=== PATIENT | female | born 1995 | race Two or more races ===

== ENCOUNTER 2017-02-10 15:27 | Emergency (ER) | payer MEDICAID, OTHER ==
[~2017-02-10] VITALS: Ht 154.9 cm; Wt 48.0 kg
[~2017-02-10 15:27] MED LIST: FERR28TA PO; GENT5DRO28 LEFT EYE; IBUP-1542 PO; PREN1TAB62 PO
[2017-02-10 15:30] VITALS: Ht 154.9 cm; Wt 48.0 kg
[2017-02-10] MEDS ORDERED: KETOROLAC 30 MG INJ IV STA (16:55)
[2017-02-10] MEDS ORDERED: ONDANSETRON 4 MG INJ IV STA (16:55)
--- NOTE | 2017-02-10 16:55 | ERD ---
ER Documentation Chief Complaint Date/Time DATE: 02/10/17 TIME: 16:49 Chief Complaint AP ONSET NOON HPI 21-year-old female presents emergency department for abdominal pain. Stated that her abdominal pain started in epigastric area then now it is painful on her right lower abdominal area. Has difficulty walking due to her abdominal pain. No associated with no vomiting. LMP: Stated that it was first week of last month. A0. Denies headache, dizziness, blurry vision, neck pain, throat pain, difficulty swallowing, loss of appetite, chest pain, back pain, diarrhea, constipation, trauma, injury, falls, urinary symptoms, , possibility of being , numbness or tingling sensation, recent travel, recent exposure to any illness, fever, chills. No known drug allergies. No past medical history. No surgical history. Does not take any prescription medication at home. Social: Works as a motor electrician. Denies smoking, use of alcoholic beverages, use of illegal drugs. ROS All systems reviewed and are negative except as per history of present illness. Medications Home Meds Active Scripts Acetaminophen* (Tylophen*) 500 Mg Capsule, 1 CAP PO Q6H Y for PAIN AND OR ELEVATED TEMP, #20 CAP Prov:KATIE SÁNCHEZ 02/10/17 Gentamicin Sulfate* (Gentamicin Sulfate* Ophth) 0.3% - 5 Ml Drops, 1 DROP LEFT EYE Q4 for 7 Days, #1 EA Prov:PAMELA KRAFT 02/26/16 Ibuprofen* (Ibuprofen*) 600 Mg Tab, 600 MG PO Q6, #20 TAB 0 Refills Prov:GABY PARIS MD 08/09/15 Reported Medications Vit-Iron Fumarate-FA ( Vitamin Tablet) 1 Each Tablet, 1 TAB PO DAILY, TAB 05/15/15 Ferrous Sulfate (Ferrous Sulfate) 1 Tab Tablet, 1 TAB PO BID 04/13/13 Allergies Allergies: Coded Allergies: No Known Allergies (Verified Allergy, Unknown, 02/10/17) PMhx/Soc History of Surgery: No Anesthesia Reaction: No Hx Neurological Disorder: No Hx Respiratory Disorders: No Hx Cardiac Disorders: No Hx Psychiatric Problems: No Hx Miscellaneous Medical Probl: No Hx Alcohol Use: No Hx Substance Use: No Hx Tobacco Use: No Physical Exam Vitals Vital Signs Date Time Temp Pulse Resp B/P Pulse Ox O2 Delivery O2 Flow Rate FiO2 02/10/17 15:30 98.1 99 18 117/59 99 Physical Exam Const: [] Head: Atraumatic Eyes: Normal Conjunctiva ENT: Normal External Ears, Nose and Mouth. Neck: Full range of motion..~ No meningismus. Resp: Clear to auscultation bilaterally Cardio: Regular rate and rhythm, no murmurs Abd: Soft, non distended. Hypoactive bowel sounds. Diffuse abdominal tenderness. Unable to jump due to abdominal pain. Has difficulty walking due to abdominal pain. No CVA tenderness. Skin: No petechiae or rashes Back: No midline or flank tenderness Ext: No cyanosis, or edema Neur: Awake and alert Psych: Normal Mood and Affect Results 24 hrs Current Medications Medications (Trade) Dose Ordered Sig/Marisel Route PRN Reason Start Time Stop Time Status Last Admin Dose Admin Ondansetron HCl (Zofran Inj) 4 mg ONCE STAT IV 02/10/17 16:55 02/10/17 16:58 DC Ketorolac Tromethamine 30 mg 30 mg ONCE STAT IV 02/10/17 16:55 02/10/17 16:58 DC Sodium Chloride (NS) 500 ml @ 500 mls/hr Q1H ONCE IV 02/10/17 17:00 02/10/17 17:59 DC Procedures/MDM 21-year-old female presents emergency department for abdominal pain. Stated that her abdominal pain started in epigastric area then now it is painful on her right lower abdominal area. Has difficulty walking due to her abdominal pain. No associated with no vomiting. LMP: Stated that it was first week of last month. A0. Denies headache, dizziness, blurry vision, neck pain, throat pain, difficulty swallowing, loss of appetite, chest pain, back pain, diarrhea, constipation, trauma, injury, falls, urinary symptoms, , possibility of being , numbness or tingling sensation, recent travel, recent exposure to any illness, fever, chills. No known drug allergies. No past medical history. No surgical history. Does not take any prescription medication at home. Social: Works as a motor electrician. Denies smoking, use of alcoholic beverages, use of illegal drugs. Physical exam: Hypoactive bowel sounds. Diffuse abdominal tenderness. Unable to jump due to abdominal pain. Has difficulty walking due to abdominal pain. No CVA tenderness. Disease process was explained to the patient and family member. They verbalized understanding and agreed to the diagnostic exam, treatment, plan of care. Treatment: IV insertion. Normal saline IV bolus 500 cc. Toradol IV. Zofran IV. Differential diagnosis: Appendicitis versus pancreatitis versus diverticulitis versus ileus versus nephrolithiasis versus pyelonephritis versus abdominal pain versus urinary tract infection Final diagnosis: Abdominal pain 19:10 Primary nurse informed me that patient eloped. Departure Diagnosis: Primary Impression: Abdominal pain KATIE SÁNCHEZ Feb 10, 2017 16:55
[2017-02-10] MEDS ORDERED: SOD CHLORIDE 0.9% 500 ML IV ONE (17:00)
[2017-02-10] MEDS ORDERED: ACET500C5 PO (17:48)
[2017-02-11] MEDS ORDERED: ACET500C5 PO (17:48)
[2017-02-11] MEDS ORDERED: ONDA4TAB8 PO (17:49)
[2017-02-11] MEDS ORDERED: OMEP20CA16 PO (17:49)
== END 2017-02-10 19:05 | disposition left against medical advice (07) ==
LOC: FTE 15:27
DX: R10.13 Epigastric pain (principal)
CPT/HCPCS: 99283; J1885; J2405; J7040

== ENCOUNTER 2017-02-11 14:24 | Emergency (ER) | payer SELFPAY ==
[~2017-02-11] VITALS: Wt 53.0 kg
[~2017-02-11 14:24] MED LIST changes: +ACET500C5 PO
[2017-02-11] MEDS ORDERED: FAMOTIDINE 20 MG TAB PO STA (15:13)
[2017-02-11] MEDS ORDERED: morphine 4 MG/ML VIAL IV STA (15:13)
[2017-02-11] MEDS ORDERED: ONDANSETRON 4 MG INJ IV STA (15:13)
--- NOTE | 2017-02-11 15:23 | ERD ---
ER Documentation Chief Complaint Date/Time DATE: 02/11/17 TIME: 15:21 Chief Complaint abd pain x1 day, nausea, no vomiting HPI This is a 21-year-old female who presents the emergency department today complaining of upper abdominal pain that started yesterday. Patient states that she woke up and had the pain. States she is unsure if it is better worse with food. States she has had some nausea and feels like she needs to vomit. It is that the pain is worse with movement. Denies any fevers or chills, dysuria. Denies being sexually active. ROS All systems reviewed and are negative except as per history of present illness. Medications Home Meds Active Scripts Omeprazole* (Omeprazole*) 20 Mg Capsule., 20 MG PO BID, #20 Prov:DIANE SANCHEZ PA-C 02/11/17 Ondansetron Hcl* (Zofran*) 4 Mg Tablet, 4 MG PO Q6H for NAUSEA AND/OR VOMITING, #30 TAB Prov:DIANE SANCHEZ PA-C 02/11/17 Acetaminophen* (Tylophen*) 500 Mg Capsule, 1 CAP PO Q6H Y for PAIN AND OR ELEVATED TEMP, #30 CAP Prov:DIANE SANCHEZ PA-C 02/11/17 Acetaminophen* (Tylophen*) 500 Mg Capsule, 1 CAP PO Q6H Y for PAIN AND OR ELEVATED TEMP, #20 CAP Prov:KATIE SÁNCHEZ 02/10/17 Gentamicin Sulfate* (Gentamicin Sulfate* Ophth) 0.3% - 5 Ml Drops, 1 DROP LEFT EYE Q4 for 7 Days, #1 EA Prov:PAMELA KRAFT 02/26/16 Ibuprofen* (Ibuprofen*) 600 Mg Tab, 600 MG PO Q6, #20 TAB 0 Refills Prov:GABY PARIS MD 08/09/15 Reported Medications Vit-Iron Fumarate-FA ( Vitamin Tablet) 1 Each Tablet, 1 TAB PO DAILY, TAB 05/15/15 Ferrous Sulfate (Ferrous Sulfate) 1 Tab Tablet, 1 TAB PO BID 04/13/13 Allergies Allergies: Coded Allergies: No Known Allergies (Verified Allergy, Unknown, 02/11/17) PMhx/Soc Medical and Surgical Hx: pt denies Medical Hx, pt denies Surgical Hx History of Surgery: No Anesthesia Reaction: No Hx Neurological Disorder: No Hx Respiratory Disorders: No Hx Cardiac Disorders: No Hx Psychiatric Problems: No Hx Miscellaneous Medical Probl: No Hx Alcohol Use: No Hx Substance Use: No Hx Tobacco Use: No Smoking Status: Never smoker Physical Exam Vitals Vital Signs Date Time Temp Pulse Resp B/P Pulse Ox O2 Delivery O2 Flow Rate FiO2 02/11/17 14:32 99.6 105 17 106/65 97 Physical Exam Const: NAD Head: Atraumatic Eyes: Normal Conjunctiva ENT: Normal External Ears, Nose and Mouth. Neck: Full range of motion..~ No meningismus. Resp: Clear to auscultation bilaterally Cardio: Regular rate and rhythm, no murmurs Abd: Soft, epigastric and right upper quadrant tenderness non distended. Normal bowel sounds. No lower abdominal pain. No tenderness to McBurney's. Skin: No petechiae or rashes Back: No midline or flank tenderness Ext: No cyanosis, or edema Neur: Awake and alert Psych: Normal Mood and Affect Result Diagram: 02/11/17 1530 02/11/17 1530 Results 24 hrs Laboratory Tests Test 02/11/17 15:20 02/11/17 15:30 Urine Color YELLOW Urine Clarity TURBID Urine pH 5.0 Urine Specific [place] 1.031 Urine Ketones TRACEmg/dL Urine Nitrite NEGATIVEmg/dL Urine Bilirubin NEGATIVEmg/dL Urine Urobilinogen NEGATIVEmg/dL Urine Leukocyte Esterase TRACELeu/ul Urine Microscopic RBC 0/HPF Urine Microscopic WBC 0/HPF Urine Squamous Epithelial Cells FEW/HPF Urine Amorphous Crystals MANY/HPF Urine Mucus FEW/HPF Urine Hemoglobin NEGATIVEmg/dL Urine Glucose NEGATIVEmg/dL Urine Total Protein 1+mg/dl White Blood Count 4.510^3/ul Red Blood Count 5.3910^6/ul Hemoglobin 11.5g/dl Hematocrit 39.5% Mean Corpuscular Volume 73.3fl Mean Corpuscular Hemoglobin 21.3pg Mean Corpuscular Hemoglobin Concent 29.1g/dl Red Cell Distribution Width 16.3% Platelet Count 17849^3/UL Mean Platelet Volume 9.7fl Neutrophils % 76.3% Lymphocytes % 14.8% Monocytes % 8.1% Eosinophils % 0.4% Basophils % 0.4% Nucleated Red Blood Cells % 0.0/100WBC Neutrophils # 3.410^3/ul Lymphocytes # 0.710^3/ul Monocytes # 0.410^3/ul Eosinophils # 0.010^3/ul Basophils # 0.010^3/ul Nucleated Red Blood Cells # 0.010^3/ul Sodium Level 145mmol/L Potassium Level 4.3mmol/L Chloride Level 103mmol/L Carbon Dioxide Level 26mmol/L Anion Gap 20 Blood Urea Nitrogen 9mg/dl Creatinine 0.70mg/dl Glucose Level 75mg/dl Calcium Level 9.7mg/dl Total Bilirubin 0.3mg/dl Direct Bilirubin 0.00mg/dl Indirect Bilirubin 0.3mg/dl Aspartate Amino Transf (AST/SGOT) 36IU/L Alanine Aminotransferase (ALT/SGPT) 33IU/L Alkaline Phosphatase 67IU/L Total Protein 9.7g/dl Albumin 5.3g/dl Globulin 4.40g/dl Albumin/Globulin Ratio 1.20 Lipase 54U/L Current Medications Medications (Trade) Dose Ordered Sig/Marisel Route PRN Reason Start Time Stop Time Status Last Admin Dose Admin Morphine Sulfate (morphine) 4 mg ONCE STAT IV 02/11/17 15:13 02/11/17 15:15 DC 02/11/17 15:40 Ondansetron HCl (Zofran Inj) 4 mg ONCE STAT IV 02/11/17 15:13 02/11/17 15:15 DC 02/11/17 15:41 Famotidine (Pepcid) 20 mg ONCE STAT PO 02/11/17 15:13 02/11/17 15:15 DC 02/11/17 15:41 Miscellaneous Medication (Gi Cocktail (2)) 40 ml ONCE ONCE PO 02/11/17 17:00 02/11/17 17:01 DC 02/11/17 17:25 DIAGNOSTIC IMAGING REPORT Patient: ROBIN IGPSON : 1995 Age: 21 Sex: F MR #: [id number] DOS: 02/11/17 1513 Ordering MD: DIANE SANCHEZ PA-C Location: [facility] Room/Bed: PROCEDURE: Right Upper Quadrant Ultrasound. CLINICAL INDICATION: Abdominal Pain TECHNIQUE: Multiple real-time images were acquired of the patient's right upper quadrant abdomen and retroperitoneum utilizing a high resolution transducer. COMPARISON: None FINDINGS: The liver measures 16.1 cm, and demonstrates increased echogenicity and coarsened echotexture. The main portal vein is patent with proper directional flow. There is no intrahepatic biliary ductal dilatation. The extrahepatic common bile duct measures 2 mm. The gallbladder is without stones, wall thickening, or pericholecystic fluid. The visualized pancreas is unremarkable. The right kidney measures 10.2 x 4.1 x 4.7 cm and demonstrates normal echotexture. There is no right renal calculus or hydronephrosis. The visualized abdominal aorta and IVC are grossly unremarkable. IMPRESSION: The liver is top - normal in size and demonstrates increased echogenicity and coarsened echotexture which are nonspecific and can be seen with mild to moderate fatty infiltration as well as early chronic liver disease. No definite morphologic changes of cirrhosis are identified. The main portal vein is patent with proper directional flow. No cholelithiasis or acute cholecystitis. Normal CBD. RPTAT: EE Physician [place]son Date Time Electronically viewed and signed by Toby Lepe Physician on 02/11/2017 16:26 RA/ CC: DIANE SANCHEZ PA-C Procedures/[facility] This is a 21-year-old female who presents emergency department today complaining of upper abdominal pain that started yesterday. 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 Today on physical exam patient has epigastric and right upper quadrant tenderness. She is afebrile and otherwise well-appearing however given the location of her pain I did obtain laboratory workup as well as imaging. Laboratory workup shows no elevated white blood cell count. The globin is very mildly decreased. Platelets are within normal limits. Sodium is very mildly elevated otherwise electrolytes are within normal limits. Glucose is within normal limits. Liver enzymes are within normal limits. Lipase is within normal limits. UA turbid but only shows trace leukocyte esterase. Negative nitrites. Denies any dysuria. Urine testis negative Right upper quadrant ultrasound shows the liver is top and normal in size and demonstrates increased echogenicity and coarsened echo texture which are nonspecific and can be seen with mild to moderate fatty infiltration as well as early chronic liver disease. There is no definite morphologic changes of cirrhosis identified. Main portal vein is patent with proper directional flow. There is no cholelithiasis or acute cholecystitis. There is a normal common bile duct. Patient was given morphine, Zofran and Pepcid as well as GI cocktail here in the emergency department. Patient has upper abdominal pain of uncertain etiology however may be due to gastritis versus peptic ulcer disease given that her pain appeared to be located mostly in the epigastric region. She also indicated the pain is worse with movement and this may also be musculoskeletal. Denies any lower abdominal pain. Low suspicion for acute surgical abdomen. Discussed the patient with Dr. Garza and he has recommended that she follow-up with her primary care doctor for possible referral to GI specialist given her ultrasound reports and possible early chronic liver disease. At this time the patient is stable for discharge and outpatient management. Patient should follow up with their PCP in the next 1-2 days. They may return to the emergency department sooner for any persistent or worsening of symptoms. Patient understood and agreed with the plan. Departure Diagnosis: Primary Impression: Abdominal pain Abdominal location: upper abdomen, unspecified Qualified Code: R10.10 - Pain of upper abdomen Condition: DIANE Ramos PA-C Feb 11, 2017 15:23
[2017-02-11 15:48] LABS: BASOPHILS % 0.4 % (0.0-2.0); EOSINOPHILS % 0.4 % (0.0-7.0); HEMATOCRIT 39.5 % (37.0-47.0); HEMOGLOBIN 11.5 g/dl (12.0-16.0); LYMPHOCYTES # 0.7 10^3/ul (0.8-2.9); LYMPHOCYTES % 14.8 % (18.0-55.0); MEAN CORPUSCULAR HEMOGLOBIN 21.3 pg (29.0-33.0); MEAN CORPUSCULAR HGB CONC 29.1 g/dl (32.0-37.0); MEAN CORPUSCULAR VOLUME 73.3 fl (72.0-104.0); MEAN PLATELET VOLUME 9.7 fl (7.4-10.4); MONOCYTE # 0.4 10^3/ul (0.3-0.9); MONOCYTES % 8.1 % (0.0-13.0); NEUTROPHIL # 3.4 10^3/ul (1.6-7.5); NEUTROPHILS % 76.3 % (30.0-74.0); PLATELET COUNT 342 10^3/UL (140-415); RED BLOOD COUNT 5.39 10^6/ul (4.20-5.40); RED CELL DISTRIBUTION WIDTH 16.3 % (11.5-14.5); WHITE BLOOD COUNT 4.5 10^3/ul (4.8-10.8)
[2017-02-11 16:01] LABS: ADD UMIC YES; UR AMORPHOUS CRYSTAL MANY /HPF (NONE SEEN); UR ASCORBIC ACID 40 mg/dL (NEGATIVE); UR BILIRUBIN (Dip) NEGATIVE (NEGATIVE); UR BLOOD (Dip) NEGATIVE (NEGATIVE); UR CLARITY TURBID (CLEAR); UR COLOR YELLOW (YELLOW); UR GLUCOSE (Dip) NEGATIVE (NEGATIVE); UR KETONES (Dip) TRACE mg/dL (NEGATIVE); UR LEUKOCYTE ESTERASE (Dip) TRACE Leu/ul (NEGATIVE); UR MUCUS FEW /HPF (NONE SEEN); UR NITRITE (Dip) NEGATIVE (NEGATIVE); UR RBC 0 /HPF (0-5); UR SPECIFIC GRAVITY (Dip) 1.031 (1.003-1.030); UR SQUAMOUS EPITHELIAL CELL FEW /HPF (FEW); UR TOTAL PROTEIN (Dip) 1+ mg/dl (NEGATIVE); UR UROBILINOGEN (Dip) NEGATIVE (NEGATIVE)
[2017-02-11 16:10] LABS: ALBUMIN 5.3 g/dl (3.3-4.9); ALBUMIN/GLOBULIN RATIO 1.2; BILIRUBIN,INDIRECT 0.3 mg/dl (0-1.1); BILIRUBIN,TOTAL 0.3 mg/dl (0.2-1.3); CALCIUM 9.7 mg/dl (8.4-10.2); CREATININE 0.7 mg/dl (0.44-1.00); POTASSIUM 4.3 mmol/L (3.5-5.1); TOTAL PROTEIN 9.7 g/dl (6.1-8.1)
--- NOTE | 2017-02-11 16:26 | RADRPT ---
PROCEDURE: Right Upper Quadrant Ultrasound. CLINICAL INDICATION: Abdominal Pain TECHNIQUE: Multiple real-time images were acquired of the patient's right upper quadrant abdomen a nd retroperitoneum utilizing a high resolution transducer. COMPARISON: None FINDINGS: The liver measures 16.1 cm, and demonstrates increased echogenicity and coarsened echotexture. The m ain portal vein is patent with proper directional flow. There is no intrahepatic biliary ductal dila tation. The extrahepatic common bile duct measures 2 mm. The gallbladder is without stones, wall thickening, or pericholecystic fluid. The visualized pancreas is unremarkable. The right kidney measures 10.2 x 4.1 x 4.7 cm and demonstrates normal echotexture. There is no right renal calculus or hydronephrosis. The visualized abdominal aorta and IVC are grossly unremarkable. IMPRESSION: The liver is top - normal in size and demonstrates increased echogenicity and coarsened echotexture which are nonspecific and can be seen with mild to moderate fatty infiltration as well as early inbound call center agent lupillo liver disease. No definite morphologic changes of cirrhosis are identified. The main portal vein is patent with proper directional flow. No cholelithiasis or acute cholecystitis. Normal CBD. RPTAT: EE Physician Anson Date Time Electronically viewed and signed by Physician Anson on 02/11/2017 16:26 /
[2017-02-11] MEDS ORDERED: LIDOCAINE/MYLANTA 40 ML BTL PO ONE (17:00)
[2017-02-11] MEDS ORDERED: ACET500C5 PO (17:48)
[2017-02-11] MEDS ORDERED: ONDA4TAB8 PO (17:49)
[2017-02-11] MEDS ORDERED: OMEP20CA16 PO (17:49)
[2017-02-11 18:12] VITALS: BP 113/72; PULSE 92; RESP 17; TEMP 98.8
== END 2017-02-11 18:13 | disposition home or self-care (01) ==
LOC: FTE 14:24
DX: R10.10 Upper abdominal pain, unspecified (principal)
CPT/HCPCS: 36415; 76705; 80053; 81001; 83690; 85025; 96374; 96375; 99285; J2270; J2405

== ENCOUNTER 2017-02-12 21:33 | Emergency (ER) | payer SELFPAY ==
[~2017-02-12] VITALS: Ht 162.6 cm; Wt 52.0 kg
[~2017-02-12 21:33] MED LIST changes: +OMEP20CA16 PO; +ONDA4TAB8 PO
[2017-02-12 21:52] VITALS: Ht 162.6 cm; Wt 52.0 kg
== END 2017-02-12 21:56 | disposition left against medical advice (07) ==
LOC: FTE 21:33
DX: Z53.21 Procedure and treatment not carried out due to patient leaving prior to being seen by health care provider (principal)

== ENCOUNTER 2017-11-11 12:49 | Emergency (ER) | END 2017-11-11 14:44 | disposition home or self-care (01) ==

== ENCOUNTER 2017-11-20 19:07 | Emergency (ER) | END 2017-11-21 00:35 | disposition home or self-care (01) ==

== ENCOUNTER 2018-01-27 17:02 | Emergency (ER) | END 2018-01-27 20:25 | disposition home or self-care (01) ==

== ENCOUNTER 2018-02-19 01:02 | Emergency (ER) | END 2018-02-19 03:25 | disposition home or self-care (01) ==

== ENCOUNTER 2018-09-03 23:43 | Emergency (ER) | payer OTHER ==
[~2018-09-03] VITALS: Ht 162.6 cm; Wt 57.7 kg
[~2018-09-03 23:43] MED LIST changes: -ACET500C5 PO; +DICY10CA40 PO; -FERR28TA PO; -GENT5DRO28 LEFT EYE; +HYDR-3980 PO; -IBUP-1542 PO; -OMEP20CA16 PO; +OMEP40CA6 PO; +ONDA4TAB14 PO; -ONDA4TAB8 PO; -PREN1TAB62 PO
[2018-09-03 23:57] VITALS: RESP 18; Ht 162.6 cm; Wt 57.7 kg
[2018-09-04] MEDS ORDERED: KETOROLAC 60 MG INJ IM STA (02:54)
[2018-09-04] MEDS ORDERED: ONDANSETRON (ODT) 4 MG TAB ODT STA (02:58)
[2018-09-04] MEDS ORDERED: LIDOCAINE/MYLANTA 40 ML BTL PO ONE (03:00)
[2018-09-04] MEDS ORDERED: DEXAMETHASONE 10 MG/ML 1 ML INJ IM ONE (03:00)
[2018-09-04] MEDS ORDERED: CYCLOBENZAPRINE 10 MG TAB PO ONE (03:00)
[2018-09-04] MEDS ORDERED: traMADol 50 MG TAB PO ONE (03:00)
[2018-09-04] MEDS ORDERED: FAMO40TA5 PO (03:37)
[2018-09-04] MEDS ORDERED: CYCL10TA7 PO (03:37)
[2018-09-04] MEDS ORDERED: ONDA4TAB14 PO (03:37)
[2018-09-04] MEDS ORDERED: NAPR-985 PO (03:37)
[2018-09-04] MEDS ORDERED: TRAM50TA2 PO (03:37)
--- NOTE | 2018-09-04 03:42 | ERD ---
ER Documentation Chief Complaint Chief Complaint UPPER BACK PAIN X YESTERDAY. 11/04 PAIN. HPI History of Present Illness: 22-year-old female who denies past medical history is coming in today with complaint of upper back pain that extends to the neck that is been present for 2 days. Patient reports waking up with this pain and found it difficult to move about when she was trying to take her daughter to school. Patient reports that she has not had pain before. Denies injury or trauma. Patient also has complaint of nausea that is been present for the past 2 to 3 days. Reports that it is increased after meals and worse at night. Denies vomiting, abdominal pain. At home pharmacological/nonpharmacological treatment for symptoms: Denies Denies social concerns; Denies recent foreign travel ROS All systems reviewed and are negative except as per history of present illness. Medications Home Meds Active Scripts Ondansetron (Ondansetron Odt) 4 Mg Tab.rapdis, 4 MG PO Q8 PRN for NAUSEA AND/OR VOMITING, #10 TAB Take this medication for nausea if famotidine medication does not work. Prov:SASHA DENNIS NP 09/04/18 Famotidine* (Famotidine*) 40 Mg Tablet, 40 MG PO BID for NAUSEA AFTER EATING/CHEST BURN, #60 TAB Prov:SASHA DENNIS NP 09/04/18 Naproxen* (Naprosyn*) 500 Mg Tablet, 500 MG PO BID PRN for PAIN AND/OR INFLAMMATION, #30 TAB Take this medication once in the morning and once at night for the next 7 days. After 7 days, then take every 12 hours as needed. Prov:SASHA DENNIS NP 09/04/18 Tramadol HCl (Tramadol HCl) 50 Mg Tablet, 50 MG PO Q12 PRN for MODERATE/SEVERE PAIN, #6 TAB Prov:SASHA DENNIS NP 09/04/18 Cyclobenzaprine Hcl* (Cyclobenzaprine Hcl*) 10 Mg Tablet, 10 MG PO TID PRN for MUSCLE SPASM/MUSCLE PAIN, #15 TAB Prov:SASHA DENNIS NP 09/04/18 Ondansetron (Ondansetron Odt) 4 Mg Tab.rapdis, 4 MG PO Q6H PRN for NAUSEA AND/OR VOMITING, #10 TAB Prov:SOBIA ALVAREZ MD 02/19/18 Dicyclomine HCl (Dicyclomine HCl) 10 Mg Capsule, 10 MG PO TID PRN for ABDOMINAL CRAMPING, #20 CAP Prov:SOBIA ALVAREZ MD 02/19/18 Hydrocodone/Acetaminophen ([place]nis 10-325 Tablet) 1 Each Tablet, 1 TAB PO Q6H PRN for PAIN, #7 TAB Prov:SOBIA ALVAREZ MD 02/19/18 Ondansetron (Ondansetron Odt) 4 Mg Tab.rapdis, 4 MG PO Q6H PRN for NAUSEA AND/OR VOMITING, #10 TAB Prov:ANGELINA PICKARD PA-C 01/27/18 Omeprazole* (Omeprazole*) 40 Mg Capsule.dr, 40 MG PO bid , #20 CAP Prov:JONNA,ARELY 11/20/17 Allergies Allergies: Coded Allergies: No Known Allergy (Unverified , 09/04/18) PMhx/Soc History of Surgery: No Anesthesia Reaction: No Hx Neurological Disorder: No Hx Respiratory Disorders: No Hx Cardiac Disorders: No Hx Psychiatric Problems: No Hx Miscellaneous Medical Probl: No Hx Alcohol Use: No Hx Substance Use: No Hx Tobacco Use: No Smoking Status: Never smoker FmHx Family History: No diabetes, No coronary disease Physical Exam Vitals Vital Signs Date Temp Pulse Resp B/P (MAP) Pulse Ox O2 O2 Flow FiO2 Time Delivery Rate 09/03/18 98.5 94 18 119/58 97 23:57 (78) Physical Exam Const: No acute distress Head: Atraumatic Eyes: Normal Conjunctiva ENT: Normal External Ears, Nose and Mouth. Neck: Full range of motion. No meningismus. Resp: Clear to auscultation bilaterally Cardio: Regular rate and rhythm, no murmurs Abd: Soft, non tender, non distended. Normal bowel sounds Skin: No petechiae or rashes Back: No midline or flank tenderness; tenderness to palpation to thoracic paraspinal muscles, tenderness to palpation to trapezius, palpable muscle spasms to thoracic back Ext: No cyanosis, or edema Neur: Awake and alert Psych: Normal Mood and Affect Results 24 hrs Laboratory Tests Test 09/04/18 03:14 POC Beta HCG, Qualitative NEGATIVE Current Medications Medications Dose Sig/Marisel Start Time Status Last (Trade) Ordered Route PRN Stop Time Admin Dose Reason Admin 10 mg ONCE ONCE 09/04/18 DC 09/04/18 Cyclobenzapri PO 03:00 03:15 ne HCl 09/04/18 03:01 (Flexeril) Ketorolac 60 mg ONCE STAT 09/04/18 DC 09/04/18 Tromethamine IM 02:54 03:20 (Toradol) 09/04/18 02:56 Tramadol 50 mg ONCE ONCE 09/04/18 DC 09/04/18 HCl PO 03:00 03:15 (Ultram) 09/04/18 03:01 10 mg ONCE ONCE 09/04/18 DC 09/04/18 Dexamethasone IM 03:00 03:15 (Decadron) 09/04/18 03:01 Ondansetron 4 mg ONCE STAT 09/04/18 DC HCl (Zofran ODT 02:58 Odt) 09/04/18 03:02 40 ml ONCE ONCE 09/04/18 DC 09/04/18 Miscellaneous PO 03:00 03:14 Medication 09/04/18 03:01 (Gi Cocktail (2)) Procedures/MDM ED course includes a thorough examination and history. Medications: Cyclobenzaprine, ketorolac, tramadol, GI cocktail, dexamethasone Imaging: Labs: urine Low suspicion for life-threatening medical emergency. Low suspicion for acute abdominal emergency. Low suspicion for orthopedic emergency that requires hospitalization or immediate surgical intervention Otherwise healthy patient presenting with constellation of symptoms likely representing uncomplicated upper back pain/muscle spasm/GERD as characterized by history, physical exam findings, lab findings. Urine negative Patient reassessment: Patient hemodynamically stable. Nausea no longer present. Patient with decrease in pain after medication administration. No physical signs of pain. No respiratory distress, otherwise relatively well appearing and nontoxic. Disposition given. Patient educated on diagnoses, prescriptions, follow-up care, return precautions. Strict return precautions given for worsening condition; questions answered discharge. Disposition for discharge with followup in 2 days with PCP/clinic. Departure Diagnosis: Primary Impression: Upper back pain Additional Impressions: Muscle spasm GERD (gastroesophageal reflux disease) Esophagitis presence: esophagitis presence not specified Qualified Codes: K21.9 - Gastro-esophageal reflux disease without esophagitis Condition: Stable Patient Instructions: Muscle Spasm, Back Pain (Acute Or Chronic), Gerd (Adult) Referrals: COMMUNITY CLINICS YOU HAVE RECEIVED A MEDICAL SCREENING EXAM AND THE RESULTS INDICATE THAT YOU DO NOT HAVE A CONDITION THAT REQUIRES URGENT TREATMENT IN THE EMERGENCY DEPARTMENT. FURTHER EVALUATION AND TREATMENT OF YOUR CONDITION CAN WAIT UNTIL YOU ARE SEEN IN YOUR DOCTORS OFFICE WITHIN THE NEXT 1-2 DAYS. IT IS YOUR RESPONSIBILITY TO MAKE AN APPOINTMENT FOR FOLOW-UP CARE. IF YOU HAVE A PRIMARY DOCTOR --you should call your primary doctor and schedule an appointment IF YOU DO NOT HAVE A PRIMARY DOCTOR YOU CAN CALL OUR PHYSICIAN REFERRAL HOTLINE AT IF YOU CAN NOT AFFORD TO SEE A PHYSICIAN YOU CAN CHOSE FROM THE FOLLOWING [facility] CLINICS [facility] [address] [facility] [address] [facility] [facility] [address] [facility] [facility] [address] [facility] [facility] [address] [facility]. [facility]. [address] [facility]. [facility] YOU HAVE RECEIVED A MEDICAL SCREENING EXAM AND THE RESULTS INDICATE THAT YOU DO NOT HAVE A CONDITION THAT REQUIRES URGENT TREATMENT IN THE EMERGENCY DEPARTMENT. FURTHER EVALUATION AND TREATMENT OF YOUR CONDITION CAN WAIT UNTIL YOU ARE SEEN IN YOUR DOCTORS OFFICE WITHIN THE NEXT 1-2 DAYS. IT IS YOUR RESPONSIBILITY TO MAKE AN APPOINTMENT FOR FOLOW-UP CARE. IF YOU HAVE A PRIMARY DOCTOR --you should call your primary doctor and schedule and appointment IF YOU DO NOT HAVE A PRIMARY DOCTOR YOU CAN CALL OUR PHYSICIAN REFERRAL HOTLINE AT . IF YOU CAN NOT AFFORD TO SEE A PHYSICIAN YOU CAN CHOSE FROM THE FOLLOWING [facility] INSTITUTIONS: [facility] [address] [place] [address] [facility] [address] [place] [address] [facility] + [facility] [address] [place] [address] Additional Instructions: Thank you very much for allowing us to participate in your care. Your health and safety is our top priority at [facility]. It is important to read all discharge instructions and education provided in your discharge packet. Call your primary care doctor TOMORROW for an appointment during the next 2-4 days and bring all the information and medications prescribed. Have prescriptions filled and follow precisely the directions on the label. --Cyclobenzaprine as a muscle relaxer; take this medication daily as prescribed for the next week to help with your muscle spasm. Do not operate heavy machinery while taking this medication; It may make you drowsy. -Naproxen is a anti-inflammatory/pain medication; take this medication daily as prescribed for the next week to help with swelling/inflammation/pain. -Tramadol is an opiate pain medication; take this medication as needed for moderate to severe pain. No operating of heavy machinery while taking this medication. It may cause drowsiness. --Famotidine is a medication that will help with acid reflux; take this medication as prescribed for the next 1 to 2 weeks with lunch and dinner. Report to your primary care doctor if the nausea is no longer present with this medication. If so, it is highly likely that your acid reflux is causing your nausea. If the symptoms get worse and your provider is unavailable, return to the Emergency Department immediately. SASHA DENNIS NP September 04, 2018 03:42
[2018-09-04 04:11] VITALS: BP 104/58; PULSE 78
== END 2018-09-04 04:13 | disposition home or self-care (01) ==
LOC: FTE 23:43
DX: M62.830 Muscle spasm of back (principal); K21.9 Gastro-esophageal reflux disease without esophagitis
CPT/HCPCS: 81025; 96372; J1100; J1885; Z7502; Z7610

== ENCOUNTER 2018-09-19 21:00 | Emergency (ER) | payer OTHER ==
[~2018-09-19] VITALS: Ht 162.6 cm; Wt 58.3 kg
[~2018-09-19 21:00] MED LIST changes: +CYCL10TA7 PO; +FAMO40TA5 PO; +NAPR-985 PO; +TRAM50TA2 PO
[2018-09-19 21:05] VITALS: BP 102/52; PULSE 80; RESP 16; Ht 162.6 cm; Wt 58.3 kg
[2018-09-19] MEDS ORDERED: CLOT30CR24 TOP (21:26)
--- NOTE | 2018-09-19 21:47 | ERD ---
ER Documentation Chief Complaint Chief Complaint Rash on L side x 2 weeks HPI 22-year-old female with no significant past medical history presenting to the emergency department with complaints of pruritic localized rash to the left lower abdomen for the past 2 weeks. Symptoms mild in severity. She is tried no medication for relief of symptoms. She states her daughter has the same rash which she developed before the patient. She denies any fevers, chills, or other symptoms at this time. ROS All systems reviewed and are negative except as per history of present illness. Medications Home Meds Active Scripts Clotrimazole* (Clotrimazole* AF) 1% - 30 Gm Cream.gm., 1 APPLIC TOP BID for 7 Days, #1 TUB Prov:SURJIT BUSTOS PA-C 09/19/18 Ondansetron (Ondansetron Odt) 4 Mg Tab.rapdis, 4 MG PO Q8 PRN for NAUSEA AND/OR VOMITING, #10 TAB Take this medication for nausea if famotidine medication does not work. Prov:SASHA DENNIS NP 09/04/18 Famotidine* (Famotidine*) 40 Mg Tablet, 40 MG PO BID for NAUSEA AFTER EATING/CHEST BURN, #60 TAB Prov:SASHA DENNIS NP 09/04/18 Naproxen* (Naprosyn*) 500 Mg Tablet, 500 MG PO BID PRN for PAIN AND/OR INFLAMMATION, #30 TAB Take this medication once in the morning and once at night for the next 7 days. After 7 days, then take every 12 hours as needed. Prov:SASHA DENNIS NP 09/04/18 Tramadol HCl (Tramadol HCl) 50 Mg Tablet, 50 MG PO Q12 PRN for MODERATE/SEVERE PAIN, #6 TAB Prov:SASHA DENNIS NP 09/04/18 Cyclobenzaprine Hcl* (Cyclobenzaprine Hcl*) 10 Mg Tablet, 10 MG PO TID PRN for MUSCLE SPASM/MUSCLE PAIN, #15 TAB Prov:SASHA DENNIS NP 09/04/18 Ondansetron (Ondansetron Odt) 4 Mg Tab.rapdis, 4 MG PO Q6H PRN for NAUSEA AND/OR VOMITING, #10 TAB Prov:SOBIA ALVAREZ MD 02/19/18 Dicyclomine HCl (Dicyclomine HCl) 10 Mg Capsule, 10 MG PO TID PRN for ABDOMINAL CRAMPING, #20 CAP Prov:SOBIA ALVAREZ MD 02/19/18 Hydrocodone/Acetaminophen ([place] 10-325 Tablet) 1 Each Tablet, 1 TAB PO Q6H PRN for PAIN, #7 TAB Prov:SOBIA ALVAREZ MD 02/19/18 Ondansetron (Ondansetron Odt) 4 Mg Tab.rapdis, 4 MG PO Q6H PRN for NAUSEA AND/OR VOMITING, #10 TAB Prov:ANGELINA PICKARD PA-C 01/27/18 Omeprazole* (Omeprazole*) 40 Mg Capsule.dr, 40 MG PO bid , #20 CAP Prov:JONNA,ARELY 11/20/17 Allergies Allergies: Coded Allergies: No Known Allergy (Unverified , 09/04/18) PMhx/Soc Medical and Surgical Hx: pt denies Medical Hx, pt denies Surgical Hx History of Surgery: No Anesthesia Reaction: No Hx Neurological Disorder: No Hx Respiratory Disorders: No Hx Cardiac Disorders: No Hx Psychiatric Problems: No Hx Miscellaneous Medical Probl: No Hx Alcohol Use: No Hx Substance Use: No Hx Tobacco Use: No Smoking Status: Never smoker FmHx Family History: No diabetes Physical Exam Vitals Vital Signs Date Temp Pulse Resp B/P (MAP) Pulse Ox O2 O2 Flow FiO2 Time Delivery Rate 09/19/18 97.0 80 16 102/52 100 21:05 (69) Physical Exam Const: No acute distress Head: Atraumatic Eyes: Normal Conjunctiva ENT: Normal External Ears, Nose and Mouth. Neck: Full range of motion. No meningismus. Resp: Clear to auscultation bilaterally Cardio: Regular rate and rhythm, no murmurs Skin: There is an approximate 2 cm x 2 cm annular appearing rash with central clearing localized to the left lower abdomen. Ext: No cyanosis, or edema Neur: Awake and alert Psych: Normal Mood and Affect Procedures/MDM 22-year-old female resenting to the emergency department with signs and symptoms most consistent with tinea corporis. She stable and appropriate for discharge and further outpatient management. Patient's dermatologic symptoms have stabilized while they have been evaluated in the department and are appropriate for outpatient work up. No evidence of cellulitis, Patrick Karlos's syndrome, Kawasaki's, or sepsis. The patient was in agreement with the diagnosis, plan, need for follow-up, return precautions. Departure Diagnosis: Primary Impression: Tinea corporis Condition: Fair Patient Instructions: Tinea Corporis Additional Instructions: Call your primary care doctor TOMORROW for an appointment during the next 1-2 days.See the doctor sooner or return here if your condition worsens before your appointment time. SURJIT BUSTOS PA-C September 19, 2018 21:47
== END 2018-09-19 22:00 | disposition home or self-care (01) ==
LOC: FTE 21:00
DX: B35.4 Tinea corporis (principal)
CPT/HCPCS: 99282